=== PATIENT | male | born 1980 | race Caucasian/White ===

== ENCOUNTER 2022-04-08 09:58 | Day surgery (SDC) | payer BC ==
--- OUTSIDE RECORDS SUMMARY | 2022-04-08 10:01 | XMS REPORT | Continuity of Care Document ---
:1980 Author Organization [facility] t Address [address] [place] [address] Dr. García. [address] [place] [address] Care Team Providers Name Role Phone Pcp, Patient Does Not Have A Primary Care Physician [phone] LLakeisha Attending Clinician Unavailable CHRISTA CORREA Attending Clinician Unavailable Christa Foy Attending Clinician Unknown, Attending Attending Clinician Unavailable Darling Morton Attending Clinician [phone] STEVE_Tristian Attending Clinician Unavailable Dorita Harrell Attending Clinician [phone] Tristian_Praveen Admitting Clinician Unavailable STEVE_Tristian Admitting Clinician Unavailable Payers Payer Name Policy Type Policy Number Effective Date Expiration Date S [id number] 2017 00:[place]:00 [place] [id number] 2017 00:00:00 OUT OF STATE Problems Condition Condition Condition Status Onset Resolution Last Treating Co mments Source Name Details Category Date Date Treatment Clinician Date Streptococ Streptococ Problem Active S [facility] catie sore catie Sore 01-03 Commun i throat Throat 00:00: ty 00 [facility] Acute Acute Problem Active [place] sinusitis Sinusitis 01-03 Comm uni 00:00: ty 00 [facility] Clin[facility] Pain in Pain in Problem Active [place] throat Throat 01-03 Communi 00:00: ty 00 [facility] Clinics Fatigue Fatigue Problem Active [place] 9-16 Communi 00:00: ty 00 [facility]ita [facility] Clinics Cough Cough Problem Active [place] 9-16 Communi 00:00: ty 00 Hospita Clinics Anxiety Anxiety Problem Active 2020-04 [place] disorder Disorder 2-07 Commun i 00:00: ty 00 Hospita l Clinics Depressive Depressive Problem Active 2020-04 S ween[facility] disorder Disorder 2-07 [facility] upper [facility]-23 Formattin ity of respirator respirator 00:00: g of this y y 00 note Medical infection infection might be Br anch different from the original. ICD10 Diagnosis Term Visual Specialist Utility Dyspnea Dyspnea Disease Active 2005-04 Overview: Univ ers and and 05-16 Formattin ity of respirator respirator 00:00: g of this y y note Medical abnormalit abnormalit might be Branch y y different from the original. ICD10 Diagnosis Term Visual Specialist Utility Allergies, Adverse Reactions, Alerts Allergy Allergy Status Severity Reaction(s) Onset Inactive Treating Comm ents Source Name Type Date Date Clinician NO KNOWN Drug Active [facility] ALLERGIE Class ity of S [facility] Social History Social Habit Start Date Stop Date Quantity Comments Source History of Smokes tobacco University of tobacco use daily [facility] Exposure to 2022-03-26 2022-04-05 Not sure University of SARS-CoV-2 00:00:00 10:28:00 [facility] (event) [employer] Alcohol intake 2007-06-24 2007-06-24 Current drinker Unive rsity of 00:00:00 00:00:00 of alcohol [facility] (finding) [employer] Tobacco Comment 2007-06-24 2007-06-24 occas Universit y of 00:00:00 00:00:00 [facility] Alcohol Comment 2007-06-24 2007-06-24 8 beers/week Univers ity of 00:00:00 00:00:00 [facility] Sex Ass[birth year] At [birth year] Universit y of 00:00:00 00:00:00 [facility] Smoking Status Start Date Stop Date Source Smokes tobacco daily 2007-06-24 00:00:00 Univers ity of [facility] Medications Ordered Filled Start Stop Current Ordering Indication Dosage Frequency Signature Comments Components Source Medication Medication Date Date Medication? Clinician (SIG) Name Name ketorolac 2021-04- No [id number] 30mg Univers (TORADOL) 06-06 ity of injection 18:00: 17:09 [place] 30 mg 00 :00 [facility] ketorolac 2021-04- No [id number] 30mg 30 mg, Univers (TORADOL) 06-06 Intramuscu it y of injection 18:00: 17:09 [place], ONCE, [place] 30 mg 00 :00 1 dose, On [facility] 04/05/22 at 1200, Routine Kenalog 40 Kenalog 40 No Kenalog 40 [place] mg/mL mg/mL 9-16 mg/mL Communi suspension suspension 11:45: suspension ty for for 00 for Hospita injectionTa injectionTa injectionT l ke 60 mg by ke 60 mg by lawson 60 mg Clinics injection injection by route as route as injection directed directed route as for 1 day. for 1 day. directed for 1 day. ZITHROMAX 2007-04 Yes [id number] as [facility] Real Time Content-TARI 250 2-10 directed ity of MG ORAL TAB 00:00: [place] 00 [facility] ZITHROMAX 2007-04 Yes [id number] as [facility] OpenSynergy-TARI 250 2-10 directed ity of MG ORAL TAB 00:00: [place] [address] [facility] acetaminoph acetaminoph No 1 Q7H acetaminop [place] en 300 en 300 hen 300 Communi mg-codeine mg-codeine mg-codeine ty 30 mg 30 mg 30 mg Hospita tablet Take tablet Take tablet l 1 tablet 1 tablet Take 1 Clini cs every 6-8 every 6-8 tablet hours by hours by every 6-8 oral route. oral route. hours by oral route. acetylcyste acetylcyste No 2capsul BID acetylcyst [place] ine 600 mg ine 600 mg e(s) eine 600 Communi capsule capsule mg capsule ty Take 2 Take 2 Take 2 Hospita capsules capsules capsules l twice a day twice a day twice a Clinics by oral by oral day by route. route. oral route. albuterol albuterol No 2puff(s Q5H albuterol [place] sulfate HFA sulfate HFA ) sulfate Communi 90 90 HFA 90 ty mcg/actuati mcg/actuati mcg/actuat Hospita on aerosol on aerosol ion l inhaler inhaler aerosol Clinic s Inhale 2 Inhale 2 inhaler puffs every puffs every Inhale 2 4-6 hours 4-6 hours puffs by by every 4-6 inhalation inhalation hours by route. route. inhalation route. alprazolam alprazolam No alprazolam [place] 0.5 mg 0.5 mg 0.5 mg Communi tablet prn tablet prn tablet prn ty Hospita l Clinics azithromyci azithromyci No 1 Q1D azithromyc [place] n 500 mg n 500 mg in 500 mg Co mmuni tablet Take tablet Take tablet ty 1 tablet 1 tablet Take 1 Hospi ta every day every day tablet l by oral by oral every day Clin ics route for 5 route for 5 by oral days. days. route for 5 days. fluoxetine fluoxetine No fluoxetine [place] 40 mg 40 mg 40 mg Communi capsule capsule capsule ty Hospita l Clinics ivermectin ivermectin No 2 BID ivermectin [place] 3 mg tablet 3 mg tablet 3 mg C ommuni Take 2 Take 2 tablet ty tablets tablets Take 2 Hospita twice a day twice a day tablets l by oral by oral twice a Clinic s route. route. day by oral route. omeprazole omeprazole No omeprazole [place] 40 mg 40 mg 40 mg Communi capsule,del capsule,del capsule,de ty ayed ayed layed Hospita release release release l Clinics ziprasidone ziprasidone No ziprasidon [place] 20 mg 20 mg e 20 mg Communi capsule capsule capsule ty Hospita l Clinics amoxicillin amoxicillin No 1 Q12H amoxicilli [place] [phone] n 875 Communi mg-potassiu mg-potassiu mg-potassi ty m m Hospita clavulanate clavulanate clavulanat l 125 mg 125 mg e 125 mg Clinics tablet Take tablet Take tablet 1 tablet 1 tablet Take 1 every 12 every 12 tablet hours by hours by every 12 oral route oral route hours by for 7 days. for 7 days. oral route for 7 days. benazepril benazepril No benazepril [place] 20 mg 20 mg 20 mg Communi tablet TAKE tablet TAKE tablet ty 1 TABLET BY 1 TABLET BY TAKE 1 Hospita MOUTH EVERY MOUTH EVERY TABLET BY l DAY DAY MOUTH Clinics EVERY DAY benzonatate benzonatate No 1capsul TID benzonatat [place] 200 mg 200 mg e(s) e 200 mg Communi capsule capsule capsule ty Take 1 Take 1 Take 1 Hospita capsule 3 capsule 3 capsule 3 l times a day times a day times a Clinics by oral by oral day by route as route as oral route needed for needed for as needed 5 days. 5 days. for 5 days. bupropion bupropion No bupropion [place] HCl XL 150 HCl XL 150 HCl XL 150 Communi mg 24 hr mg 24 hr mg 24 hr ty tablet, tablet, tablet, Hospit a extended extended extended l release release release Clinic s TAKE 1 TAKE 1 TAKE 1 TABLET BY TABLET BY TABLET BY MOUTH EVERY MOUTH EVERY MOUTH DAY IN THE DAY IN THE EVERY DAY MORNING MORNING IN THE MORNING bupropion bupropion No bupropion [place] HCl XL 300 HCl XL 300 HCl XL 300 Communi mg 24 hr mg 24 hr mg 24 hr ty tablet, tablet, tablet, Hospit a extended extended extended l release release release Clinic s TAKE 1 TAKE 1 TAKE 1 TABLET BY TABLET BY TABLET BY MOUTH EVERY MOUTH EVERY MOUTH DAY DAY EVERY DAY Kenalog 40 Kenalog 40 No 60mg Kenalog 40 [place] mg/mL mg/mL mg/mL Communi suspension suspension suspension ty for for for Hospita injection injection injection l Take 60 mg Take 60 mg Take 60 mg Clinics by by by injection injection injection route as route as route as directed directed directed for 1 day. for 1 day. for 1 day. omeprazole omeprazole No omeprazole [place] 40 mg 40 mg 40 mg Communi capsule,del capsule,del capsule,de ty ayed ayed layed Hospita release release release l TAKE 1 TAKE 1 TAKE 1 Clinics CAPSULE BY CAPSULE BY CAPSULE BY MOUTH EVERY MOUTH EVERY MOUTH DAY DAY EVERY DAY promethazin promethazin No 5mL Q4H promethazi [place] e-DM 6.25 e-DM 6.25 ne-DM 6.25 Communi mg-15 mg/5 mg-15 mg/5 mg-15 mg/5 ty mL oral mL oral mL oral Hospit a syrup Take syrup Take syrup Take l 5 mL every 5 mL every 5 mL every Clinics 4 hours by 4 hours by 4 hours by oral route oral route oral route as needed. as needed. as needed. Immunizations Ordered Immunization Filled Immunization Date Status Commen ts Source Name Name COVID-19 COVID-19 2020-11-30 [facility] (SARS-COV-2) 00:00:00 Hospital C linics vaccine, unspecified vaccine, unspecified COVID-19 COVID-19 2020-11-30 Completed [facility] ty (SARS-COV-2) (SARS-COV-2) 00:00:00 [facility], unspecified vaccine, unspecified Vital Signs Vital Name Observation Time Observation Value Comments Source Systolic blood 2022-04-05 16:30:00 143 mm[Hg] Univer sity [facility] Diastolic blood 2022-04-05 16:30:00 82 mm[Hg] Unive rsity of [facility] Heart rate 2022-04-05 16:29:00 98 /min [facility] Body temperature 2022-04-05 16:29:00 36.67 [facility] Respiratory rate 2022-04-05 16:29:00 17 /min [facility] Body height 2022-04-05 16:29:00 175.3 cm [facility] Body weight 2022-04-05 16:29:00 113.082 kg [facility] BMI 2022-04-05 16:29:00 36.82 kg/m2 [facility] Oxygen saturation in 2022-04-05 16:29:00 96 /min [facility] Arterial blood by [facility] Pulse oximetry Branch BP Diastolic 2022-01-03 00:00:00 82 mm[Hg] [facility] s Height 2022-01-03 00:00:00 69 [in_i] [facility] s BMI (Body Mass 2022-01-03 00:00:00 35.8 kg/m2 [facility]) [facility] Clinic s BP Systolic 2022-01-03 00:00:00 118 mm[Hg] [facility] s Body Weight 2022-01-03 00:00:00 3875.2 [oz_av] [facility] s Body Weight 2021-03-26 00:00:00 3724.8 [oz_av] [facility] s BP Diastolic 2021-03-26 00:00:00 73 mm[Hg] [facility] s Height 2021-03-26 00:00:00 69 [in_i] [facility] s BMI (Body Mass 2021-03-26 00:00:00 34.4 kg/m2 [facility] s BP Systolic 2021-03-26 00:00:00 141 mm[Hg] [facility] s Procedures Procedure Date / Time Performed Performing Clinician Sour e XR HAND 3+ VW LEFT 2022-04-05 16:47:00 Christa Correa [facility] Inguinal Region Repair [facility] Esophageal [facility] Hernia Repair [facility] Plan of Care Planned Activity Planned Date Details Comments Source Diagnostic Test 2022-01-03 rapid SARS CoV 2 Ag, [facility] Pending 00:00:00 QL [place], respiratory Hospital Clinics specimen [code = rapid SARS CoV 2 Ag, QL [place], respiratory specimen] Diagnostic Test 2022-01-03 rapid flu (A+B) [facility] Pending 00:00:00 [code = rapid flu [facility] linics (A+B)] Diagnostic Test 2022-01-03 rapid strep group A, [facility] Pending 00:00:00 throat [code = rapid [facility] strep group A, throat] Instructions [facility] s Encounters Start End Encounter Admission Attending Care Care Encounter Source Date/Time Date/Time Type Type Clinicians Facility Department ID 2022-04-08 2022-04-08 Outpatient L_Pena [facility] [id number] [place] 00:00:00 00:00:00 1220 Commun i ty Hospita l Clinics 2022-04-07 2022-04-07 Outpatient L_Pena [facility] [id number] [place] 00:00:00 00:00:00 1219 Commun i ty Hospita l Clinics 2022-04-05 2022-04-05 Outpatient TOMASA CHU [facility] [id number] Univers 10:40:56 23:59:00 RANSUDHIR ity [facility] 2022-04-05 2022-04-05 Hospital Inga [facility] [id number] Univers 10:40:56 23:59:00 Encounter Christa [facility] [id number] ity [facility] [id number] Armaan as THELMA?BLEA [id number] [facility] [address] [employer] MEDICAL OFFICE BUILDING 2022-04-05 2022-04-05 Urgent Christa Correa [facility] [id number] Univers 10:20:00 10:40:00 Care Unknown, [facility] HEALTH [id number] ity of [place] [id number] Araman as THELMA?BLEA [id number] [facility] [address] [employer] MEDICAL OFFICE [facility] 2022-01-03 2022-01-03 Outpatient L_Praveen [facility] [id number] [place] 00:00:00 00:00:00 0916 Commun i ty [facility]osp[facility] 2022-01-03 2022-01-[address] [facility] [id number] 00:00:00 00:00:00 [id number] 2022-01-03 2022-01-03 Darling [facility] [place] - [place] [id number] [place] 00:00:00 00:00:00 Kandice Morton APRN, MSN, Hospital - ty [facility]: [address], CLINIC [address], [place] [address] , Ph. 2021-06-22 2021-06-22 Outpatient [facility] 114 [place] 02:27:00 02:27:00 _L 0305 Commun i ty Hospita l [facility] 2021-05-18 2021-05-18 Outpatient [facility] 114 [place] 04:47:00 04:47:00 _L 0129 Commun i ty Hospita l [facility] 2021-04-13 2021-04-13 Outpatient [facility] 114 [place] 03:02:00 03:02:00 _L 1225 Commun i ty Hospita l Clinics 2021-03-26 2021-03-26 Outpatient [facility] 114 [place] 05:48:00 05:48:00 _L 1207 Commun i ty Hospita l [facility] 2021-03-26 2021-03-26 Dorita 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 2021-03-26 2021-03-26 Outpatient [facility] [id number] 00:00:00 00:00:00 Dorita [id number] 2021-03-05 2021-03-05 Outpatient [facility] 114 [place] 05:14:00 05:14:00 _L 1116 Commun i ty Hospita l [facility] 2021-03-05 2021-03-05 Jennifer Hatch [facility] [place] - [place] [id number] [place] 00:00:00 00:00:00 [facility] CARROLL RodriguezP-C: Hospital - ty [address] [place], [place] [address], [place] [address] , Ph. Results This patient has no known results.
[2022-04-08 10:42] LABS: Absolute Lymphocytes (CBC) 1.1 K/uL (0.7-4.9); Hematocrit 49.7 % (39.6-49.0); MCV 92.4 fL (80-100); MPV 8.3 fL (7.6-11.3); RBC Red Blood Cell Count 5.38 M/uL (4.33-5.43)
[2022-04-08] MEDS ORDERED: NA CHLORIDE 0.9% 250 ML ONE (10:47)
[2022-04-08] MEDS ORDERED: CEFAZOLIN SODIUM 1 GM/VIAL ONE (10:47)
[2022-04-08 10:54] LABS: Potassium 4.5 mmol/L (3.5-5.1)
--- NOTE | 2022-04-08 11:35 | RAD REPORT ---
EXAM DESCRIPTION: RAD -Hand Left 3 View - 04/08/2022 11:29 am CLINICAL HISTORY: Left hand swelling FINDINGS: No fracture or dislocation is seen. Hypoplastic fifth metacarpal No bony destructive lesions seen
[2022-04-08 11:44] LABS: SARS-CoV-2 Antigen Rapid Res Negative (Negative)
--- NOTE | 2022-04-08 12:32 | ER ---
Nurse's Notes [facility] Name: Lorne Cornejo Age: 42 yrs Sex: Male : 1980 Arrival Date: 04/08/2022 Time: 10:02 Bed 4 Private MD: Benedicto Gibbons Diagnosis: Local infection of the skin and subcutaneous tissue, unspecified;Left Thumb Crush Injury Presentation: 04/08 10:14 Chief complaint: Patient states: smashed his left thumb with hammer a couple months iw ago, was seen at [facility] urgent care and put on abx yesterday , followed up today and was told to come to ER and have Dr. Duran evaluate it. Coronavirus screen: At this time, the client does not indicate any symptoms associated with coronavirus-19. Ebola Screen: Patient negative for fever greater than or equal to 101.5 degrees Fahrenheit, and additional compatible Ebola Virus Disease symptoms Patient denies exposure to infectious person. Patient denies travel to an Ebola-affected area in the 21 days before illness onset. No symptoms or risks identified at this time. Initial Sepsis Screen: Does the patient meet any 2 criteria? No. Patient's initial sepsis screen is negative. Does the patient have a suspected source of infection? No. Patient's initial sepsis screen is negative. Risk Assessment: Do you want to hurt yourself or someone else? Patient reports no desire to harm self or others. Onset of symptoms was February 06, 2022. 10:14 Method Of Arrival: Ambulatory iw 10:14 Acuity: KATHIA 3 iw Historical: - Allergies: 10:16 No Known Allergies; iw - Home Meds: 10:16 Omeprazole Oral [Active]; venlafaxine oral [Active]; Wellbutrin Oral [Active]; iw - PMHx: 10:16 Depressive disorder; Anxiety; iw - PSHx: 10:16 hernia; iw - Immunization history:: Client reports receiving the 2nd dose of the Covid vaccine. - Social history:: Smoking status: Patient denies any tobacco usage or history of. Patient uses alcohol, weekly. Screenin:17 [facility] ED Fall Risk Assessment (Adult) History of falling in the last 3 months, kc6 including since admission No falls in past 3 months (0 pts) Confusion or Disorientation No (0 pts) Intoxicated or Sedated No (0 pts) Impaired Gait No (0 pts) Mobility Assist Device Used No (0 pt) Altered Elimination No (0 pt) Score/Fall Risk Level 0 - 2 = Low Risk. Abuse screen: Denies threats or abuse. Denies injuries from another. Nutritional screening: No deficits noted. Tuberculosis screening: No symptoms or risk factors identified. Assessment: 10:18 General: Appears in no apparent distress. comfortable, Behavior is calm, cooperative, kc6 appropriate for age. Pain: Denies pain. Neuro: [place] Agitation-Sedation Scale (RASS): 0 - Alert and Calm Level of Consciousness is awake, alert, Oriented to person, place, time, situation, Appropriate for age. Cardiovascular: Heart tones S1 S2 present Capillary refill < 3 seconds. Respiratory: Airway is patent Trachea midline Respiratory effort is even, unlabored, Respiratory pattern is regular, symmetrical, Breath sounds are clear bilaterally. GI: No signs and/or symptoms were reported involving the gastrointestinal system. : EENT: No signs and/or symptoms were reported regarding the EENT system. Derm: No signs and/or symptoms reported regarding the dermatologic system. Skin is intact, Skin is pink, warm \T\ dry. Musculoskeletal: Circulation, motion, and sensation intact. Capillary refill < 3 seconds, Range of motion: intact in all extremities, Swelling present in left thumb Reports numbness in left thumb. 11:02 Reassessment: Patient appears in no apparent distress at this time. No changes from kc6 previously documented assessment. Patient and/or family updated on plan of care and expected duration. Pain level reassessed. Patient is alert, oriented x 3, equal unlabored respirations, skin warm/dry/pink. Patient denies pain at this time. 11:57 Reassessment: Patient appears in no apparent distress at this time. No changes from kc6 previously documented assessment. Patient and/or family updated on plan of care and expected duration. Pain level reassessed. Patient is alert, oriented x 3, equal unlabored respirations, skin warm/dry/pink. Patient denies pain at this time. 13:45 Reassessment: Dr. Gibbons at bedside speaking with the patient. kc6 Vital Signs: 10:14 BP 147 / 99; Pulse 86; Resp 16; Temp 98.0; Pulse Ox 99% on R/A; Weight 108.86 kg; iw Height 5 ft. 9 in. (175.26 cm); Pain 0/10; 11:02 BP 146 / 85; Pulse 74; Resp 18 S; Pulse Ox 98% on R/A; Pain 0/10; kc6 11:57 BP 146 / 87; Pulse 81; Resp 18 S; Pulse Ox 99% on R/A; Pain 0/10; kc6 13:46 BP 140 / 88; Pulse 71; Resp 18 S; Pulse Ox 99% on R/A; Pain 0/10; kc6 10:14 Body Mass Index 35.44 (108.86 kg, 175.26 cm) ED Course: 10:02 Patient arrived in ED. as 10:03 Benedicto Gibbons MD is Private Physician. as 10:03 Glenna Kline FNP is [facility] jh7 10:03 Garland Littlejohn DO is Attending Physician. 7 10:11 Lizette Mayers, LAILA is Primary Nurse. kc6 10:16 Triage completed. iw 10:18 Arm band placed on. iw 10:19 Patient has correct armband on for positive identification. Bed in low position. Call kc6 light in reach. Side rails up X 1. 10:31 BMP Sent. kc6 10:31 CBC with Diff Sent. kc6 10:31 Inserted saline lock: 20 gauge in right antecubital area, using aseptic technique. kc6 Blood collected. 11:30 XRAY Hand LEFT 3 View In Process Unspecified. EDMS 12:30 Benedicto Gibbons MD is Hospitalizing Provider. [facility] 13:55 No provider procedures requiring assistance completed. Patient admitted, IV remains in kc6 place. Administered Medications: 11:02 Drug: Ancef (cefazolin) 1 grams Route: IVPB; Site: right antecubital; kc6 12:02 Follow up: Response: No adverse reaction; IV Status: Completed infusion; IV Intake: kc6 250ml Medication: 13:55 VIS not applicable for this client. kc6 Intake: 12:02 IV: 250ml; Total: 250ml. 6 Outcome: 12:31 Decision to Hospitalize by Provider. [facility] 13:55 Admitted to OR accompanied by tech, via wheelchair, with chart, Report called to [place] [id number] 13:55 Condition: stable 13:55 Instructed on the need for transfer. 13:57 Patient left the ED. kc6 Signatures: Dispatcher [employer] Lis Simpson Irene, RN RN iw Glenna Kline, PENCILS WASHER PENCILS WASHER jh7 Lizette Mayers RN RN kc6
--- NOTE | 2022-04-08 12:32 | EDPHYS ---
Physician Documentation [facility] Name: Lorne Cornejo Age: 42 yrs Sex: Male : 1980 Arrival Date: 04/08/2022 Time: 10:02 Bed 4 Private MD: Benedicto Gibbons ED Physician Garland Littlejohn HPI: 04/08 10:20 This 42 yrs old Male presents to ER via Ambulatory with complaints of Thumb Injury. jh7 10:20 Onset: The symptoms/episode began/occurred 2 month(s) ago, and became worse. Patient jh7 sent from Dr. Gibbons's office for a left thumb injury. He reports that he smashed his thumb in a door 2 months ago but that he noticed that his nail had turned black as well as the surrounding skin. Reports that he was started on oral antibiotics yesterday at an urgent care. Denies fever or decrease in ROM.. Historical: - Allergies: 10:16 No Known Allergies; iw - Home Meds: 10:16 Omeprazole Oral [Active]; venlafaxine oral [Active]; Wellbutrin Oral [Active]; iw - PMHx: 10:16 Depressive disorder; Anxiety; iw - PSHx: 10:16 hernia; iw - Immunization history:: Client reports receiving the 2nd dose of the Covid vaccine. - Social history:: Smoking status: Patient denies any tobacco usage or history of. Patient uses alcohol, weekly. ROS: 10:20 Constitutional: Negative for fever, chills, and weight loss, Eyes: Negative for injury, jh7 pain, redness, and discharge, ENT: Negative for injury, pain, and discharge, Cardiovascular: Negative for chest pain, palpitations, and edema, Respiratory: Negative for shortness of breath, cough, wheezing, and pleuritic chest pain, Abdomen/GI: Negative for abdominal pain, nausea, vomiting, diarrhea, and constipation, Back: Negative for injury and pain, Neuro: Negative for headache, weakness, numbness, tingling, and seizure. 10:20 MS/extremity: Positive for injury or acute deformity, erythema, swelling, Negative for decreased range of motion. 10:20 Skin: Positive for erythema. 10:20 All other systems are negative. Exam: 10:20 Constitutional: This is a well developed, well nourished patient who is awake, alert, jh7 and in no acute distress. Head/Face: Normocephalic, atraumatic. Neck: Trachea midline, no thyromegaly or masses palpated, and no cervical lymphadenopathy. Supple, full range of motion without nuchal rigidity, or vertebral point tenderness. No Meningismus. Cardiovascular: Regular rate and rhythm with a normal S1 and S2. No gallops, murmurs, or rubs. Normal PMI, no JVD. No pulse deficits. Respiratory: Lungs have equal breath sounds bilaterally, clear to auscultation and percussion. No rales, rhonchi or wheezes noted. No increased work of breathing, no retractions or nasal flaring. Back: No spinal tenderness. No costovertebral tenderness. Full range of motion. Neuro: Awake and alert, GCS 15, oriented to person, place, time, and situation. Motor strength 5/5 in all extremities. Sensory grossly intact. Normal gait. 10:20 Musculoskeletal/extremity: ROM: intact in all extremities, Circulation is intact in all extremities. the L thumb numbness. 10:20 Skin: Appearance: Left thumbnail is black and nearly detached. There is mild erythema and tenderness slightly proximal to the nail with scant purulent drainage present.. Vital Signs: 10:14 BP 147 / 99; Pulse 86; Resp 16; Temp 98.0; Pulse Ox 99% on R/A; Weight 108.86 kg; iw Height 5 ft. 9 in. (175.26 cm); Pain 0/10; 11:02 BP 146 / 85; Pulse 74; Resp 18 S; Pulse Ox 98% on R/A; Pain 0/10; kc6 11:57 BP 146 / 87; Pulse 81; Resp 18 S; Pulse Ox 99% on R/A; Pain 0/10; kc6 13:46 BP 140 / 88; Pulse 71; Resp 18 S; Pulse Ox 99% on R/A; Pain 0/10; kc6 10:14 Body Mass Index 35.44 (108.86 kg, 175.26 cm) iw MDM: 10:03 Patient medically screened. 7 10:37 ED course: Spoke to Dr. Gibbons who advised basic labs and x-rays of the left hand. 7 He stated that he was on his way to the ER and to prep the patient for surgery.. 12:35 Differential diagnosis: Osteomyelitis, paronychia, nail injury, cellulitis of the left [facility] thumb. Data reviewed: vital signs, nurses notes, lab test result(s), radiologic studies, plain films. Data interpreted: Pulse oximetry: is 99 %. Interpretation: normal. Counseling: I had a detailed discussion with the patient and/or guardian regarding: the historical points, exam findings, and any diagnostic results supporting the discharge/admit diagnosis, the need for further work-up and treatment in the hospital. 04/08 10:14 Order name: CBC with Diff; Complete Time: 11:28 [facility] 04/08 10:14 Order name: BMP; Complete Time: 11:28 [facility] 04/08 10:31 Order name: IV Start; Complete Time: 10:31 kc6 04/08 10:36 Order name: SARS-COV-2 Antigen Rapid; Complete Time: 11:47 bd 04/08 10:37 Order name: XRAY Hand LEFT 3 View; Complete Time: 11:42 [facility] Administered Medications: 11:02 Drug: Ancef (cefazolin) 1 grams Route: IVPB; Site: right antecubital; kc6 12:02 Follow up: Response: No adverse reaction; IV Status: Completed infusion; IV Intake: kc6 250ml Disposition: 11:26 Co-signature as Attending Physician, Garland Littlejohn DO I was immediately available onsite ms3 in the emergency department for consultation in the care of the patient. Disposition Summary: 04/08/22 12:31 Hospitalization Ordered Hospitalization Status: Observation [facility] Provider: Benedicto Gibbons [facility] Location: Operating Room [facility] Condition: Stable [facility] Problem: new [facility] Symptoms: are unchanged [facility] Bed/Room Type: Standard [facility] Room Assignment: [facility] Diagnosis - Local infection of the skin and subcutaneous tissue, unspecified [facility] - Left Thumb Crush Injury [facility] Forms: - Medication Reconciliation Form [facility] - SBAR form [facility] Signatures: Dispatcher [employer] Bharati Bravo RN RN iw Sims, Marcus, DO DO ms3 Glenna Kline FNP [employer] [facility] Lizette Mayers RN RN kc6 Corrections: (The following items were deleted from the chart) 12:37 10:37 ED course: Spoke to Dr. Gibbons who advised basic labs and x-rays of the left jh7 hand. He stated that he was on his way to the ER.. 7
[2022-04-08] MEDS ORDERED: FENTANYL CITR 100 MCG/2 ML ONE (13:48)
[2022-04-08] MEDS ORDERED: propofoL 200 MG/20 ML VIAL IV ONE (13:48)
[2022-04-08] MEDS ORDERED: LIDOCAINE 2% MPF 5 ML VIAL ONE (13:49)
[2022-04-08] MEDS ORDERED: dexAMETHasone 10 MG/ML VIAL ONE ×2 (13:49→14:17)
[2022-04-08] MEDS ORDERED: ONDANSETRON 4 MG/2 ML VIAL ONE (13:49)
[2022-04-08] MEDS ORDERED: KETOROLAC 30 MG/ML INJ ONE (13:49)
[2022-04-08] MEDS ORDERED: MIDAZOLAM HCL 2 MG/2 ML INJ ONE (13:49)
[2022-04-08] MEDS ORDERED: NA CHLORIDE 0.9% 1,000 ML IV SCH (14:06)
[2022-04-08] MEDS ORDERED: Ringers Lactate 1,000 ML IV ONE (14:08)
[2022-04-08] MEDS ORDERED: BUPIVACAINE 0.5% PF 10 ML VIAL ONE (14:17)
[2022-04-08] MEDS: HYDROMORPHONE HCL 1 MG/ML INJ ONE ×4 (15:16→15:32)
--- NOTE | 2022-04-08 15:19 | HP ---
Date of Admission: 04/08/2022 History Of Present Illness: A 42-year-old white male about 2 months ago, then fell this w eekend, injured the thumb, began hurting more and more. He presented to the emergency room with evaluation. He does . Past Medical History: No medical problems. Past Surgical History: Previous surgery of hernia. Social History: He does not smoke. Drinks on occasion. Allergies: NO ALLERGIES. Medications: He is on Wellbutrin . Physical Examination: He has a swollen left thumb. The nail plate is floating off. He has dry gangrene around it. It is swollen and tender. Laboratory Data: X-ray shows no fractures. Assessment: Crush injury of the left thumb. Plan: Debridement. HONORIO/JUSTIN Voice ID: [id number]
[2022-04-08 15:31] VITALS: O2SAT 96
--- NOTE | 2022-04-08 15:31 | OP ---
Surgeon: Benedicto Gibbons MD Preoperative Diagnosis: Subungual hematoma of the left thumb. Postoperative Diagnosis: Subungual hematoma of the left thumb. Procedure Performed: Evacuation of hematoma, debridement of skin, nail bed repair. Anesthesia: General. Description Of Procedure: After satisfactory induction of general anesthesia, the left hand was prep ped with Betadine scrub and Betadine paint. Dry sterile drapes were applied in usual manner. A corey osteal elevator was used to remove the thumb nail plate. The eponychium was debrided with tenotomy s cissors. The wound jet lavaged, irrigated with 3 L of dilute Betadine solution. The laceration of n ail bed was repaired with interrupted 4-0 PDS sutures. A nail plate. Xeroform and 2 inch Candis were applied for dressing. The patient tolerated procedure well and returned to Recovery. HONORIO/JUSTIN Voice ID: [id number] Report ID: [id number]
[2022-04-08] MEDS ORDERED: HYDROCODONE/APAP 10/325 TAB PO ONE (15:50)
[2022-04-08 16:02] VITALS: BP 135/77; TEMP 98.4
[2022-04-08] MEDS ORDERED: HYDROCODONE/APAP 10/325 TAB ONE (16:04)
== END 2022-04-08 16:30 | disposition home or self-care (01) ==
LOC: ER 09:58 → ERHOLD 13:02 → UNDOADMOB 13:02 → OR 14:28
PROVIDERS: ATTEND Specialist
PROC: 0HQQXZZ Repair Finger Nail, External Approach (ICD-10-PCS; 2022-04-08)
PROC: 0X9K0ZZ Drainage of Left Hand, Open Approach (ICD-10-PCS; principal; 2022-04-08 12:30)
DX: S60.112A Contusion of left thumb with damage to nail, initial encounter (principal); X58.XXXA Exposure to other specified factors, initial encounter
CPT/HCPCS: 85025; 80048; 36415; 73130; 87811; 10140; 11760; J2704; J2001; J2250; J3010; J1100 ×2; J1170 ×2; J7120; J7050; J2405; J0690; 96365; 99285

== ENCOUNTER 2025-01-27 11:43 | Emergency (ER) | payer BC ==
--- OUTSIDE RECORDS SUMMARY | 2025-01-27 11:46 | XMS REPORT | Continuity of Care Document ---
Author Name Unknown Address [address] [facility] [address] [facility] [address] [place] [address] [facility] Address [address] [place] [address] Care Team Providers Care Legal Adviser Name Role Phone Pcp, Patient Does Not Have A Primary Care Physic natividad Dandre Esparza Attending Clinician + [phone] Unknown, Attending Attending Clinician Unavailab Alda Garcia Provider Attending Clinician Unavailable DANDRE LA Attending Clinician Unavailab simon Chappell Attending Clinician Unavailable TYSHAWN BERRIOS Attending Clinician CANDY Lowery Attending Clinician UnavailSHASAH Dukes Attending Clinician Unavailable Kamila Case PA-C Attending Clinician [phone] KAMILA CASE Attending Clinician Unavailable Doctor Unassigned, [place] Attending Clinician U CHRISTA Foley Attending Clinician Unavailable Christa Foy Attending Clinician [phone] Unknown, Attending Attending Clinician UnavailDarling Bustamante Attending Clinician [phone] STEVE_Tristian Attending Clinician Unavailable Dorita Harrell Attending Clinician [phone] L_Praveen Admitting Clinician Unavailable TYSHAWN BERRIOS Admitting Clinician CANDY Lowery Admitting Clinician Cecil WILSON_Tristian Admitting Clinician Unavailable Payers Payer Name Policy Type Policy Number Effective Date Expirati on Date Source [place] [id number] 2017 00:00:00 Problems Condition Name Condition Details Condition Category Status Onset Date Resolution Date Last Treatment Date Treating Clinician Comments Source Abnormal renal function Abnormal Renal Function Problem Active 07-18 00:00: 00 [facility] Type 2 diabetes mellitus Type 2 Diabetes Mellitus Problem Active 05-02 00:00: 00 [facility] Mixed hyperlipid emia Mixed Hyperlipid emia Problem Active 05-02 00:00: 00 [facility] Obstructiv e sleep apnea syndrome Obstructiv e Sleep Apnea Syndrome Problem Active 10-17 00:00: 00 [facility] Hyperlipid emia Hyperlipid emia Problem Active 09-23 00:00: 00 [facility] Acute pharyngiti s Acute Pharyngiti s Problem Active 08-08 00:00: 00 [facility] Allergic rhinitis Allergic Rhinitis Problem Active 08-08 00:00: 00 [facility] Acute upper respirator y infection Acute Upper Respirator y Infection Problem Active 05-13 00:00: 00 [facility] Nasal congestion Nasal Congestion Problem Active 05-13 00:00: 00 [facility] Thumb injury Thumb Injury Problem Active 2021-04 00:00: 00 [facility] Streptococ catie sore throat Streptococ catie Sore Throat Problem Active 01-03 00:00: 00 [facility] Acute sinusitis Acute Sinusitis Problem Active 01-03 00:00: 00 [facility] Pain in throat Pain in Throat Problem Active 01-03 00:00: 00 [facility] Fatigue Fatigue Problem Active 01-03 00:00: 00 [facility] Cough Cough Problem Active 01-03 00:00: 00 [facility] Anxiety disorder Anxiety Disorder Problem Active 2020-04 00:00: 00 [facility] Depressive disorder Depressive Disorder Problem Active 2020-04 00:00: 00 [facility] Acute upper respirator y infection Acute upper respirator y infection Disease Active 06-23 00:00: 00 Overview: Formattin g of this note might be different from the original. 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 Dyspnea and respirator y abnormalit y Dyspnea and respirator y abnormalit y Disease Active 2005-04 00:00: 00 Overview: Formattin g of this note might be different from the original. 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 Allergies, Adverse Reactions, Alerts Allergy Name Allergy Type Status Severity Reaction(s) Onset Date Inactive Date Treating Clinician Comments Source NO KNOWN ALLERGIE S Drug Class Active [facility] Social History Social Habit Start Date Stop Date Quantity Comments Source Sexual orientation U [facility] History of tobacco use Smokes tobacco daily [facility] Exposure to SARS-CoV-2 (event) 2022-07-16 00:00:00 2022-07-26 20:07:00 Not sure [facility] History of Social function 2022-04-05 00:00:00 2022-04-05 00:00:00 [facility] Alcohol intake 2007-06-24 00:00:00 2007-06-24 00:00:00 Current drinker of alcohol (finding) [facility] Tobacco Comment 2007-06-24 00:00:00 2007-06-24 00:00:00 occas [facility] Alcohol Comment 2007-06-24 00:00:00 2007-06-24 00:00:00 8 beers/week [facility] Alcoholic beverage intake 2007-06-24 00:00:00 2007-06-24 00:00:00 Current drinker of alcohol (finding) [facility] Sex assigned at 1980 00:00:00 1980 00:00:00 [facility] Smoking Status Start Date Stop Date Source Never Smoker [facility] Smokes tobacco daily 2007-06-24 00:00:00 [facility] Medications Ordered Medication Name Filled Medication Name Start Date Stop Date Current Medication? Ordering Clinician Indication Dosage Frequency Signature (SIG) Comments Components Source dicyclomine 20 mg tablet 09-21 00:00: 00 Yes [id number] 20mg Take 1 tablet by mouth 4 times daily as needed for Abdominal pain. [facility] ondansetron 4 mg disintegrat ing tablet 09-21 00:00: 00 Yes [id number] 4mg Take 1 tablet by mouth every 8 hours as needed for Nausea and Vomiting (N/V). [facility] nirmatrelvi r-ritonavir (PAXLOVID) 300 mg (150 mg x 2)-100 mg tablet 11-22 00:00: 00 Yes [id number] 3{tbl} Take 3 tablets by mouth in the morning and 3 tablets in the evening. [facility] benzonatate 200 mg capsule 11-22 00:00: 00 12-03 04:59 :00 No [id number] 200mg Take 1 capsule by mouth 3 (three) times daily as needed for Cough for up to [address] [facility] ondansetron 4 mg tablet 11-22 00:00: 00 11-28 04:59 :00 No [id number] 4mg Take 1 tablet by mouth every 8 (eight) hours as needed for Nausea and Vomiting (N/V) for up to [address] [facility] dexamethaso ne sod phos PF injection 10 mg 07-27 01:30: 00 07-27 01:34 :00 No [id number] [facility] flutic[facility] propionate 50 mcg/actuati on nasal spray 07-26 00:00: 00 Yes [id number] 2{spray } Use 2 Sprays in each nostril in the morning. [facility] bromphenira mine-pseudo ephedrine-D M (BROMFED DM) 2-30-10 mg/5 mL syrup -08 00:00: 00 Yes [id number] 5mL Take 5 mL by mouth 3 (three) times daily as needed for Cold symptoms. [facility] cetirizine 10 mg tablet 07-26 00:00: 00 Yes [id number] 10mg Take 1 tablet by mouth in the morning. [facility] venlafaxine XR 75 mg 24 hr capsule 3- 00:00: [address] [facility] buPROPion XL 300 mg 24 hr tablet 3- 00:00: [address] [facility] benazepriL 20 mg tablet 3-20 00:00: [address] [facility] rosuvastati n 20 mg tablet 2- 00:00: [address] [facility] icosapent ethyL 1 gram capsule - 00:00: [address] [facility] ketorolac (TORADOL) injection 30 mg 2021-04 18:00: 00 04-05 17:09 :00 No [id number] [facility] ZITHROMAX Z-TARI 250 MG ORAL TAB 2007-04 00:00: [id number] [facility] clonazepam 0.5 mg tablet TAKE 1 TABLET BY MOUTH THREE TIMES A DAY NEEDED clonazepam 0.5 mg tablet TAKE 1 TABLET BY MOUTH THREE TIMES A DAY NEEDED No clonazepam 0.5 mg tablet TAKE 1 TABLET BY MOUTH THREE TIMES A DAY NEEDED [facility] anastrozole 1 mg tablet TAKE 1/2 TABLET ORALLY 48 HOURS POST WEEKLY INJECTION 90 DAYS anastrozole 1 mg tablet TAKE 1/2 TABLET ORALLY 48 HOURS POST WEEKLY INJECTION 90 DAYS No anastrozol e 1 mg tablet TAKE 1/2 TABLET ORALLY 48 HOURS POST WEEKLY INJECTION 90 DAYS [facility] ezetimibe 10 mg tablet TAKE 1 TABLET BY MOUTH EVERY DAY ezetimibe 10 mg tablet TAKE 1 TABLET BY MOUTH EVERY DAY No ezetimibe 10 mg tablet TAKE 1 TABLET BY MOUTH EVERY DAY [facility] metformin ER 500 mg tablet,exte nded release 24 hr Take 1 tablet every day by oral route in the morning for 90 days. metformin ER 500 mg tablet,exte nded release 24 hr Take 1 tablet every day by oral route in the morning for 90 days. No 1 Q1D metformin ER 500 mg tablet,ext ended release 24 hr Take 1 tablet every day by oral route in the morning for 90 days. [facility] montelukast 10 mg tablet Take 1 tablet every day by oral route for 90 days. montelukast 10 mg tablet Take 1 tablet every day by oral route for 90 days. No 1 Q1D montelukas t 10 mg tablet Take 1 tablet every day by oral route for 90 days. [facility] vilazodone 40 mg tablet TAKE 1 TABLET BY MOUTH EVERY DAY WITH FOOD vilazodone 40 mg tablet TAKE 1 TABLET BY MOUTH EVERY DAY WITH FOOD No vilazodone 40 mg tablet TAKE 1 TABLET BY MOUTH EVERY DAY WITH FOOD [facility] Accu-Chek Guide Glucose Meter USE DIRECTED. Accu-Chek Guide Glucose Meter USE DIRECTED. No Accu-Chek Guide Glucose Meter USE DIRECTED. [facility] Auvelity 45 mg-105 mg tablet, extended release Take 1 tablet twice a day by oral route as directed. Auvelity 45 mg-105 mg tablet, extended release Take 1 tablet twice a day by oral route as directed. No 1 BID Auvelity 45 mg-105 mg tablet, extended release Take 1 tablet twice a day by oral route as directed. [facility] doxepin 10 mg capsule TAKE 1 CAPSULE BY MOUTH EVERYDAY AT BEDTIME PRN doxepin 10 mg capsule TAKE 1 CAPSULE BY MOUTH EVERYDAY AT BEDTIME PRN No doxepin 10 mg capsule TAKE 1 CAPSULE BY MOUTH EVERYDAY AT BEDTIME PRN [facility] omeprazole 20 mg capsule,del ayed release TAKE 1 CAPSULE BY MOUTH EVERY MORNING omeprazole 20 mg capsule,del ayed release TAKE 1 CAPSULE BY MOUTH EVERY MORNING No omeprazole 20 mg capsule,de layed release TAKE 1 CAPSULE BY MOUTH EVERY MORNING [facility] Rexulti 2 mg tablet TAKE 1 TABLET BY MOUTH EVERY DAY Rexulti 2 mg tablet TAKE 1 TABLET BY MOUTH EVERY DAY No Rexulti 2 mg tablet TAKE 1 TABLET BY MOUTH EVERY DAY [facility] Farxiga 5 mg tablet Take 1 tablet every day by oral route for 90 days. Farxiga 5 mg tablet Take 1 tablet every day by oral route for 90 days. No 1 Q1D Farxiga 5 mg tablet Take 1 tablet every day by oral route for 90 days. [facility] fenofibrate micronized 134 mg capsule Take 1 capsule every day by oral route for 90 days. fenofibrate micronized 134 mg capsule Take 1 capsule every day by oral route for 90 days. No 1capsul e(s) Q1D fenofibrat e micronized 134 mg capsule Take 1 capsule every day by oral route for 90 days. [facility] Immunizations Ordered Immunization Name Filled Immunization Name Date Status Comments Source COVID-19 (SARS-COV-2) vaccine, unspecified COVID-19 (SARS-COV-2) vaccine, unspecified [facility] Vital Signs Vital Name Observation Time Observation Value Comments S ource Height 2024-12-27 00:00:00 69 [in_i] [facility] BP Systolic 2024-12-27 00:00:00 137 mm[Hg] [facility] BP Diastolic 2024-12-27 00:00:00 87 mm[Hg] [facility] BMI (Body Mass Index) 2024-12-27 00:00:00 39 kg/m2 [facility] Body Weight 2024-12-27 00:00:00 4227.2 [oz_av] [facility] BP Systolic 2024-12-13 00:00:00 131 mm[Hg] [facility] BP Diastolic 2024-12-13 00:00:00 89 mm[Hg] [facility] Height 2024-12-13 00:00:00 69 [in_i] [facility] BMI (Body Mass Index) 2024-12-13 00:00:00 38 kg/m2 [facility] Body Weight 2024-12-13 00:00:00 4112 [oz_av] [facility] Systolic blood pressure 2024-09-21 15:07:00 145 mm[Hg] [facility] Diastolic blood pressure 2024-09-21 15:07:00 96 mm[Hg] [facility] Heart rate 2024-09-21 15:07:00 82 /min [facility] Body temperature 2024-09-21 15:07:00 36.67 Joy [facility] Body height 2024-09-21 15:07:00 175.3 cm [facility] Body weight 2024-09-21 15:07:00 120.702 kg [facility] BMI 2024-09-21 15:07:00 39.30 kg/m2 [facility] Oxygen saturation in Arterial blood by Pulse oximetry 2024-09-21 15:07:00 95 /min [facility] Height 2024-07-29 00:00:00 69 [in_i] [facility] BMI (Body Mass Index) 2024-07-29 00:00:00 37.2 kg/m2 [facility] BP Systolic 2024-07-29 00:00:00 141 mm[Hg] [facility] Body Weight 2024-07-29 00:00:00 4032 [oz_av] [facility] BP Diastolic 2024-07-29 00:00:00 70 mm[Hg] [facility] BP Systolic 2024-07-14 00:00:00 127 mm[Hg] [facility] Body Weight 2024-07-14 00:00:00 4105.6 [oz_av] [facility] BP Diastolic 2024-07-14 00:00:00 76 mm[Hg] [facility] Height 2024-07-14 00:00:00 69 [in_i] [facility] BMI (Body Mass Index) 2024-07-14 00:00:00 37.9 kg/m2 [facility] Height 2024-06-22 00:00:00 69 [in_i] [facility] Body Weight 2024-06-22 00:00:00 4036.8 [oz_av] [facility] BP Systolic 2024-06-22 00:00:00 119 mm[Hg] [facility] BMI (Body Mass Index) 2024-06-22 00:00:00 37.3 kg/m2 [facility] BP Diastolic 2024-06-22 00:00:00 65 mm[Hg] [facility] BP Diastolic 2024-06-06 00:00:00 95 mm[Hg] [facility] Height 2024-06-06 00:00:00 69 [in_i] [facility] BP Systolic 2024-06-06 00:00:00 142 mm[Hg] [facility] BMI (Body Mass Index) 2024-06-06 00:00:00 38 kg/m2 [facility] Body Weight 2024-06-06 00:00:00 4115.2 [oz_av] [facility] Height 2024-05-18 00:00:00 69 [in_i] [facility] BP Systolic 2024-05-18 00:00:00 158 mm[Hg] [facility] BP Diastolic 2024-05-18 00:00:00 89 mm[Hg] [facility] BMI (Body Mass Index) 2024-05-16 00:00:00 37.8 kg/m2 [facility] Height 2024-05-16 00:00:00 69 [in_i] [facility] Body Weight 2024-05-16 00:00:00 4092.8 [oz_av] [facility] BP Diastolic 2024-05-16 00:00:00 83 mm[Hg] [facility] BP Systolic 2024-05-16 00:00:00 128 mm[Hg] [facility] BP Systolic 2024-05-12 00:00:00 125 mm[Hg] [facility] BMI (Body Mass Index) 2024-05-12 00:00:00 37.2 kg/m2 [facility] Height 2024-05-12 00:00:00 69 [in_i] [facility] Body Weight 2024-05-12 00:00:00 4035.2 [oz_av] [facility] BP Diastolic 2024-05-12 00:00:00 70 mm[Hg] [facility] BMI (Body Mass Index) 2024-05-06 00:00:00 37.7 kg/m2 [facility] BP Systolic 2024-05-06 00:00:00 132 mm[Hg] [facility] Height 2024-05-06 00:00:00 69 [in_i] [facility] Body Weight 2024-05-06 00:00:00 4080 [oz_av] [facility] BP Diastolic 2024-05-06 00:00:00 88 mm[Hg] [facility] Height 2024-05-04 00:00:00 69 [in_i] [facility] BP Diastolic 2024-05-04 00:00:00 85 mm[Hg] [facility] BP Systolic 2024-05-04 00:00:00 149 mm[Hg] [facility] BP Diastolic 2024-05-02 00:00:00 78 mm[Hg] [facility] BP Systolic 2024-05-02 00:00:00 133 mm[Hg] [facility] BMI (Body Mass Index) 2024-05-02 00:00:00 36.9 kg/m2 [facility] Body Weight 2024-05-02 00:00:00 3996.8 [oz_av] [facility] Height 2024-05-02 00:00:00 69 [in_i] [facility] Height 2024-03-23 00:00:00 69 [in_i] [facility] BP Diastolic 2024-03-23 00:00:00 94 mm[Hg] [facility] Body Weight 2024-03-23 00:00:00 4196.8 [oz_av] [facility] BMI (Body Mass Index) 2024-03-23 00:00:00 38.7 kg/m2 [facility] BP Systolic 2024-03-23 00:00:00 156 mm[Hg] [facility] Body Weight 2024-03-16 00:00:00 3987.2 [oz_av] [facility] Height 2024-03-16 00:00:00 69 [in_i] [facility] BP Systolic 2024-03-16 00:00:00 139 mm[Hg] [facility] BMI (Body Mass Index) 2024-03-16 00:00:00 36.8 kg/m2 [facility] BP Diastolic 2024-03-16 00:00:00 92 mm[Hg] [facility] BMI (Body Mass Index) 2024-03-10 00:00:00 37.4 kg/m2 [facility] Height 2024-03-10 00:00:00 69 [in_i] [facility] BP Systolic 2024-03-10 00:00:00 141 mm[Hg] [facility] Body Weight 2024-03-10 00:00:00 4054.4 [oz_av] [facility] BP Diastolic 2024-03-10 00:00:00 97 mm[Hg] [facility] Height 2024-02-09 00:00:00 69 [in_i] [facility] BMI (Body Mass Index) 2024-02-09 00:00:00 36.3 kg/m2 [facility] BP Systolic 2024-02-09 00:00:00 138 mm[Hg] [facility] Body Weight 2024-02-09 00:00:00 3929.6 [oz_av] [facility] BP Diastolic 2024-02-09 00:00:00 86 mm[Hg] [facility] Height 2024-01-08 00:00:00 69 [in_i] [facility] Height 2023-12-24 00:00:00 69 [in_i] [facility] BP Systolic 2023-12-24 00:00:00 140 mm[Hg] [facility] BP Diastolic 2023-12-24 00:00:00 92 mm[Hg] [facility] BMI (Body Mass Index) 2023-12-24 00:00:00 37.2 kg/m2 [facility] Body Weight 2023-12-24 00:00:00 4028.8 [oz_av] [facility] Systolic blood pressure 2023-11-24 01:44:00 131 mm[Hg] [facility] Diastolic blood pressure 2023-11-24 01:44:00 87 mm[Hg] [facility] Heart rate 2023-11-24 01:44:00 87 /min [facility] Body temperature 2023-11-24 01:44:00 36.89 Joy [facility] Respiratory rate 2023-11-24 01:44:00 16 /min [facility] Body weight 2023-11-24 01:44:00 108.183 kg [facility] BMI 2023-11-24 01:44:00 35.74 kg/m2 [facility] Oxygen saturation in Arterial blood by Pulse oximetry 2023-11-24 01:44:00 99 /min [facility] Body Weight 2023-09-29 00:00:00 4128 [oz_av] [facility] BP Diastolic 2023-09-29 00:00:00 94 mm[Hg] [facility] BMI (Body Mass Index) 2023-09-29 00:00:00 38.1 kg/m2 [facility] BP Systolic 2023-09-29 00:00:00 141 mm[Hg] [facility] Height 2023-09-29 00:00:00 69 [in_i] [facility] Body Weight 2023-06-16 00:00:00 4220.8 [oz_av] [facility] Height 2023-06-16 00:00:00 69 [in_i] [facility] BP Systolic 2023-06-16 00:00:00 119 mm[Hg] [facility] BP Diastolic 2023-06-16 00:00:00 65 mm[Hg] [facility] BMI (Body Mass Index) 2023-06-16 00:00:00 39 kg/m2 [facility] Height 2023-04-22 00:00:00 69 [in_i] [facility] BMI (Body Mass Index) 2023-04-22 00:00:00 38.5 kg/m2 [facility] Body Weight 2023-04-22 00:00:00 4172.8 [oz_av] [facility] BP Systolic 2023-04-22 00:00:00 147 mm[Hg] [facility] BP Diastolic 2023-04-22 00:00:00 72 mm[Hg] [facility] BP Systolic 2022-12-15 00:00:00 127 mm[Hg] [facility] BP Diastolic 2022-12-15 00:00:00 77 mm[Hg] [facility] Body Weight 2022-12-15 00:00:00 3766.4 [oz_av] [facility] Height 2022-12-15 00:00:00 69 [in_i] [facility] BMI (Body Mass Index) 2022-12-15 00:00:00 34.8 kg/m2 [facility] BP Systolic 2022-12-08 00:00:00 131 mm[Hg] [facility] Body Weight 2022-12-08 00:00:00 3696 [oz_av] [facility] Height 2022-12-08 00:00:00 69 [in_i] [facility] BMI (Body Mass Index) 2022-12-08 00:00:00 34.1 kg/m2 [facility] BP Diastolic 2022-12-08 00:00:00 80 mm[Hg] [facility] BP Systolic 2022-12-01 00:00:00 138 mm[Hg] [facility] BMI (Body Mass Index) 2022-12-01 00:00:00 36.4 kg/m2 [facility] Body Weight 2022-12-01 00:00:00 3942.4 [oz_av] [facility] BP Diastolic 2022-12-01 00:00:00 85 mm[Hg] [facility] Height 2022-12-01 00:00:00 69 [in_i] [facility] BP Diastolic 2022-10-24 00:00:00 77 mm[Hg] [facility] Height 2022-10-24 00:00:00 69 [in_i] [facility] BMI (Body Mass Index) 2022-10-24 00:00:00 35.6 kg/m2 [facility] BP Systolic 2022-10-24 00:00:00 137 mm[Hg] [facility] Body Weight 2022-10-24 00:00:00 3856 [oz_av] [facility] BP Diastolic 2022-09-23 00:00:00 82 mm[Hg] [facility] Height 2022-09-23 00:00:00 69 [in_i] [facility] BMI (Body Mass Index) 2022-09-23 00:00:00 37.2 kg/m2 [facility] BP Systolic 2022-09-23 00:00:00 142 mm[Hg] [facility] Body Weight 2022-09-23 00:00:00 4032 [oz_av] [facility] BP Diastolic 2022-08-12 00:00:00 66 mm[Hg] [facility] Height 2022-08-12 00:00:00 69 [in_i] [facility] BMI (Body Mass Index) 2022-08-12 00:00:00 37.2 kg/m2 [facility] BP Systolic 2022-08-12 00:00:00 121 mm[Hg] [facility] Body Weight 2022-08-12 00:00:00 4025.6 [oz_av] [facility] [facility] BP Diastolic 2022-08-08 00:00:00 74 mm[Hg] [facility] Height 2022-08-08 00:00:00 69 [in_i] [facility] BMI (Body Mass Index) 2022-08-08 00:00:00 37.2 kg/m2 [facility] BP Systolic 2022-08-08 00:00:00 128 mm[Hg] [facility] Body Weight 2022-08-08 00:00:00 4032 [oz_av] [facility] Systolic blood pressure 2022-07-27 01:09:00 133 mm[Hg] [facility] Diastolic blood pressure 2022-07-27 01:09:00 80 mm[Hg] [facility] Heart rate 2022-07-27 01:09:00 95 /min [facility] Body temperature 2022-07-27 01:09:00 36.11 Joy [facility] Respiratory rate 2022-07-27 01:09:00 15 /min [facility] Body height 2022-07-27 01:09:00 174 cm [facility] Body weight 2022-07-27 01:09:00 117.226 kg [facility] BMI 2022-07-27 01:09:00 38.72 kg/m2 [facility] Oxygen saturation in Arterial blood by Pulse oximetry 2022-07-27 01:09:00 97 /min [facility] BP Diastolic 2022-05-13 00:00:00 75 mm[Hg] [facility] Height 2022-05-13 00:00:00 69 [in_i] [facility] BMI (Body Mass Index) 2022-05-13 00:00:00 36.7 kg/m2 [facility] BP Systolic 2022-05-13 00:00:00 134 mm[Hg] [facility] Body Weight 2022-05-13 00:00:00 3977.6 [oz_av] [facility] BP Diastolic 2022-04-07 00:00:00 90 mm[Hg] [facility] Height 2022-04-07 00:00:00 69 [in_i] [facility] BMI (Body Mass Index) 2022-04-07 00:00:00 36.9 kg/m2 [facility] BP Systolic 2022-04-07 00:00:00 153 mm[Hg] [facility] Body Weight 2022-04-07 00:00:00 4000 [oz_av] [facility] Systolic blood pressure 2022-04-05 16:30:00 143 mm[Hg] [facility] Diastolic blood pressure 2022-04-05 16:30:00 82 mm[Hg] [facility] Heart rate 2022-04-05 16:29:00 98 /min [facility] Body temperature 2022-04-05 16:29:00 36.67 Joy [facility] Respiratory rate 2022-04-05 16:29:00 17 /min [facility] Body height 2022-04-05 16:29:00 175.3 cm [facility] Body weight 2022-04-05 16:29:00 113.082 kg [facility] BMI 2022-04-05 16:29:00 36.82 kg/m2 [facility] Oxygen saturation in Arterial blood by Pulse oximetry 2022-04-05 16:29:00 96 /min [facility] BP Diastolic 2022-01-03 00:00:00 82 mm[Hg] [facility] Height 2022-01-03 00:00:00 69 [in_i] [facility] BMI (Body Mass Index) 2022-01-03 00:00:00 35.8 kg/m2 [facility] BP Systolic 2022-01-03 00:00:00 118 mm[Hg] [facility] Body Weight 2022-01-03 00:00:00 3875.2 [oz_av] [facility] BP Diastolic 2021-03-26 00:00:00 73 mm[Hg] [facility] Height 2021-03-26 00:00:00 69 [in_i] [facility] BMI (Body Mass Index) 2021-03-26 00:00:00 34.4 kg/m2 [facility] BP Systolic 2021-03-26 00:00:00 141 mm[Hg] [facility] Body Weight 2021-03-26 00:00:00 3724.8 [oz_av] [facility] Procedures Procedure Date / Time Performed Performing Clinicia n Source US, kidney 2024-12-27 00:00:00 [facility] CT, chest, w/wo contrast 2024-05-16 00:00:[address] [facility] [address], chest, w/ contrast 2024-05-16 00:00:00 [facility] XR, chest, 2 view 2024-05-06 00:00:00 [facility] XR, ankle, 3 or more view 2024-03-10 00:00:00 [facility] POCT SARS-COV-2 ANTIGEN (BINAX NOW) 2023-11-23 00:00:00 Dandre La [facility] home sleep study 2022-09-23 00:00:00 [facility] XR, chest, 2 view 2022-08-12 00:00:00 [facility] POCT SARS-COV-2 ANTIGEN (BINAX NOW) 2022-07-26 00:00:00 Kamila Case [facility] EXTERNAL PROVIDER RECORDS 2022-04-08 06:01:00 Doctor Unassigned, [place] [facility] XR HAND 3+ VW LEFT 2022-04-05 16:47:00 Christa Xiong [facility] Inguinal Region Repair [facility] Esophageal Hiatus Hernia Repair [facility] Encounters Start Date/Time End Date/Time Encounter Type Admission Type Attending Clinicians Care Facility Care Department Encounter ID Source 2024-12-27 00:00:00 2024-12-27 00:00:00 Darling Morton APRN, MSN, [employer]GAN TE[employer]ER-BC: [address] [place] [address] , Ph. [facility] [id number] [facility] 2024-12-13 00:00:00 2024-12-13 00:00:00 Darling Morton APRN, MSN, [facility]-BC: [address] [place] [address] , Ph. [facility] 0826 [facility] 2024-09-21 10:00:00 2024-09-21 10:20:37 Urgent Care R Dandre La, Attending [facility] [id number] [facility] 2024-07-29 00:00:00 2024-07-29 00:00:00 Darling Mroton APRN, MSN, [facility]-BC: [address] [place] [address] , Ph. [facility] 0411 [facility] 2024-07-14 00:00:00 2024-07-14 00:00:00 Darling Morton APRN, MSN, [employer]BC: [address] [place] [address] , Ph. [facility] 0327 [facility] 2024-06-22 00:00:00 2024-06-22 00:00:00 Darling Morton APRN, MSN, [employer]-BC: [address] [place] [address] , Ph. [facility] 0305 [facility] 2024-06-06 00:00:00 2024-06-06 00:00:00 Darling Morton APRN, MSN, [facility]-: [address] [place] [address] , Ph. [facility] 2024-05-18 00:00:00 2024-05-18 00:00:00 Darling Morton APRN, MSN, [employer] TE[employer]-BC: 668 [facility], [address] [address] , Ph. [facility] 012 [facility] 2024-05-16 00:00:00 2024-05-16 00:00:00 Darling [place] APRN, MSN, [facility]: [address] [place] [address], [address] [address] , Ph. [facility] 012 [facility] 2024-05-12 00:00:00 2024-05-12 00:00:00 Darling Morton APRN, MSN, [facility]-BC: [address] [place] [address], [address] [address] , Ph. [facility] 0123 [facility] 2024-05-06 00:00:00 2024-05-06 00:00:00 Darling Morton APRN, MSN, [facility]: [address] [place] [address], [address] [address] , Ph. [facility] 0117 [facility] 2024-05-04 00:00:2024-05-04 00:00:00 Darling Morton APRN, MSN, [facility]: [address] [facility], [address], [place] [address] , Ph. [facility] [phone] 0115 [facility] 2024-05-02 00:00:00 2024-05-02 00:00:00 Darling Morton APRN, MSN, [facility]: [address] [facility], Suite [facility], [place] [address] , Ph. [facility] 0113 [facility] 2024-03-23 00:00:00 2024-03-23 00:00:00 Darling Morton APRN, MSN, [facility]: [address] [place] [address], [place] [address], [place] [address] , Ph. [facility] 1204 [facility] 2024-03-16 00:00:00 2024-03-16 00:00:00 Darling [place] APRN, MSN, [facility]: [address] [facility], Suite [facility], [place] [address] , Ph. [facility] 1127 [facility] 2024-03-10 00:00:00 2024-03-10 00:00:00 Darling [place] APRN, MSN, [facility]: [address] [place] [address], [address] [place] [address] , Ph. [facility] 1121 [facility] 2024-02-09 00:00:00 2024-02-09 00:00:00 Darling [place] APRN, MSN, [facility]: [address] [facility], Suite [facility], [place] [address] , Ph. [facility] [phone] 1022 [facility] 2024-01-08 00:00:00 2024-01-08 00:00:00 Darling [place] APRN, MSN, [employer]-BC: [address] [facility], [address] [place] [address] , Ph. [facility] 0920 [facility] 2023-12-24 00:00:00 2023-12-24 00:00:00 Darling [place] APRN, MSN, [facility]: [address] [facility], [address] [place] [address] , Ph. [facility] 0905 [facility] 2023-12-02 00:00:00 2023-12-02 10:53:00 Letter (Out) Campaigns, Generic Provider Campaigns, Generic Provider [facility] [id number] [facility] 2023-11-23 20:20:00 2023-11-23 21:07:47 Outpatient R DANDRE LA [facility] [id number] [facility] 2023-11-23 20:20:00 2023-11-23 21:07:47 Urgent Care Dandre La, Attending [facility] [id number] [id number] [facility] 2023-09-29 00:00:00 2023-09-29 00:00:00 Darling Morton APRN, MSN, [facility]: [address] [facility], Suite [facility], [place] [address] , Ph. [facility] 0611 [facility] 2023-07-11 00:00:00 2023-07-11 00:00:00 Outpatient L_Pena [facility] 0323 [facility] 2023-06-16 00:00:00 2023-06-16 00:00:00 Darling [place] APRN, MSN, [facility]: 8 [facility], [address] [place] [address] , Ph. [facility] [id number] [facility] 2023-04-22 00:00:00 2023-04-22 00:00:00 Darling [place] APRN, MSN, [facility]: [address] [place] [address], Suite [facility], [place] [address] , Ph. [facility] [id number] [facility] 2022-12-15 00:00:00 2022-12-15 00:00:00 Darling Morton APRN, MSN, [facility]: [address] [place] [address], [address] [place] [address] , Ph. [facility] [id number] [facility] 2022-12-08 00:00:00 2022-12-08 00:00:00 Darling [place] APRN, MSN, OR[employer] TEACHER-BC: [address] [place] [address], Suite [facility], [place] [address] , [facility] [id number] 2022-12-05 00:02:00 2022-12-07 16:25:00 Inpatient TYSHAWN REID [facility] CAR [id number] [facility] 2022-12-04 20:50:00 2022-12-04 23:59:00 Outpatient CANDY MORALES [facility] ERICH [id number] [facility] 2022-12-01 00:00:00 2022-12-01 00:00:00 Darling [place] APRN, MSN, [employer] TEACHER-BC: [address] [facility], [address], [place] [address] , Ph. [facility] [id number] [facility] 2022-10-24 00:00:00 2022-10-24 00:00:00 Cathi Mas, MSN, [employer], ORGAN TEACHER-C: [address] [place], [facility] [address], [place] [address] , Ph. [facility], Cathi Mas, MSN, ORGAN TEACHER-C [id number] [facility] 2022-09-23 00:00:00 2022-09-23 00:00:00 Darling [place] APRN, MSN, OR[employer] TEACHER-: [address] [place] [address], [address], [place] [address] , Ph. [facility] [id number] [facility] 2022-08-12 00:00:00 2022-08-12 00:00:00 Darling [place] APRN, MSN, ORGAN TEACHER-: [address] [place] [address], [address] [address] , Ph. [facility] [id number] [facility] 2022-08-08 00:00:00 2022-08-08 00:00:00 Daniela Campos APRN-ORGAN TEACHER-B C: [address] [facility], Suite [facility], [place] [address] , Ph. [facility] [id number] [facility] 2022-07-26 20:20:00 2022-07-26 20:20:00 Urgent [facility] 1..840.114 [id number] [id number] [facility] 2022-07-26 20:20:00 2022-07-26 20:18:11 Outpatient R MARGARETKEVIN [facility] [id number] [facility] 2022-05-13 00:00:00 2022-05-13 00:00:00 Darling [place] APRN, MSN, OR[employer] TEACHER-BC: [address] [place] [address], [address] [place] [address] , Ph. [facility] [id number] [facility] 2022-04-08 00:00:00 2022-04-08 00:00:00 Orders Only Doctor Unassigned, [place] [facility] 1..840.114 350.1.13.10 4.2.7.2.[id number] [facility] 2022-04-07 00:00:00 2022-04-07 00:00:00 Darling [place] APRN, MSN, ORGAN TEACHER-BC: [address] [place] [address], [address] [place] [address] , Ph. [facility] [id number] [facility] 2022-04-05 10:40:56 2022-04-05 23:59:00 Outpatient R CHRISTA XIONG [facility] [id number] [facility] 2022-04-05 10:40:56 2022-04-05 23:59:00 Hospital Encounter Christa Xiong [facility] [id number] [id number] [id number] [facility] 2022-04-05 10:20:00 2022-04-05 10:40:00 Urgent Care Christa Xiong Unknown, Attending [facility]?[employer] [id number] [id number] [id number] [facility] 2022-01-03 00:00:00 2022-01-03 00:00:00 Outpatient Darling oMrton [facility] [id number] 2022-01-03 00:00:00 2022-01-03 00:00:00 Darling [place] APRN, MSN, [facility]-: [address] [place] [address], [address] [address] , Ph. [facility] [id number] [facility] 2021-03-26 00:00:00 2021-03-26 00:00:00 Dorita Harrell APRN-REPAIRER WELDING EQUIPMENT-C: [address] [place] [address], [address] [place] [address] , Ph. [facility] [id number] [facility] 2021-03-26 00:00:00 2021-03-26 00:00:00 Outpatient Dorita Harrell [facility] [id number] 2021-03-05 00:00:00 2021-03-05 00:00:00 CARROLL Gates-: [address] [place] [address], [address], [place] [address] , Ph. [facility] [id number] [facility] Results Test Description Test Time Test Comments Results Result Co mments Source [facility], [id number] 11:05:36 * Test Item Value Reference Range Interpretation Comme nts Strep (test code = Strep) negative [facility] A and B and SARS-CoV+SARS-CoV-2 (COVID-19) Ag panel - Upper respiratory specimen byRapid [id number] 14:22:00* Test Item Value Reference Range Interpretation Comme nts COVID (test code = COVID) negative FLU A (test code = FLU A) positive FLU B (test code = FLU B) negative [facility] and B and SARS-CoV+SARS-CoV-2 (COVID-19) Ag panel - Upper respiratory specimen byRapid [id number] 11:23:00* Test Item Value Reference Range Interpretation Comme nts COVID (test code = COVID) negative FLU A (test code = FLU A) negative FLU B (test code = FLU B) negative [facility], [id number] 11:23:00 * Test Item Value Reference Range Interpretation Comme nts Strep (test code = Strep) negative [facility] (A+B)2024-02-09 09:34:00* Test Item Value Reference Range Interpretation Comme nts FLU A (test code = FLU A) negative FLU B (test code = FLU B) negative [facility] ([facility]-19) Ag [Presence] in Respiratory system specimen by Rapid [id number] 09:33:00* Test Item Value Reference Range Interpretation Comme nts SARS CoV 2 (test code = SARS CoV 2) negative [facility], [id number] 09:26:00 * Test Item Value Reference Range Interpretation Comme nts Strep (test code = Strep) negative [facility] SARS-[facility]OV-2 ANTIGEN (BINAX NOW)2023-11-24 01:45:00* Test Item Value Reference Range Interpretation Comme nts POCT SARS-COV-2 ANTIGEN (jaskaran t code = 39980-7) Positive Not Detected, See Comment A On board controls acceptable with C Line (test code = 3574) Yes Lab Interpretation (test cod e = 08223-7) Abnormal [facility] (A+B[facility]2023-04-22 08:39:35* Test Item Value Reference Range Interpretation Comme nts FLU A (test code = FLU A) negative FLU B (test code = FLU B) negative [facility], [id number] 08:39:28 * Test Item Value Reference Range Interpretation Comme nts Strep (test code = Strep) negative [facility] ([facility]OVID-19) Ag [Presence] in Respiratory system specimen by Rapid [id number] 08:39:21* Test Item Value Reference Range Interpretation Comme nts SARS CoV 2 (test code = SARS CoV 2) negative [facility] Center[facility] macro (dipstick) panel - Urine 2022-09-23 10:49:00* Test Item Value Reference Range Interpretation Comme nts Leukocytes (test code = Leukocytes) Negative Nitrite (test code = Nitrite) negative Urobilinogen (test code = Urobilinogen) .2 Protein (test code = Protein) Negative pH (test code = pH) 5.5 Blood (test code = Blood) Negative Specific Burns (test code = Specific Burns) 1.025 Ketone (test code = Ketone) Negative Bilirubin (test code = Bilirubin) Negative Glucose (test code = Glucose) Negative Appearance (test code = Appearance) Clear Color (test code = Color) Yellow [facility] [Mass/volume] in Capillary blood 2022-09-23 10:45:00* Test Item Value Reference Range Interpretation Comme nts Blood Glucose: mg/dl (test c ode = Blood Glucose: mg/dl) 135 [facility] ([facility]OVID-19) Ag [Presence] in Respiratory specimen by Rapid [id number] 09:11:00* Test Item Value Reference Range Interpretation Comme nts SARS CoV 2 (test code = SARS CoV 2) negative [facility], [id number] 08:53:00 * Test Item Value Reference Range Interpretation Comme nts Strep (test code = Strep) negative [facility] SARS-COV-2 ANTIGEN (BINAX NOW)2022-07-27 01:36:00* Test Item Value Reference Range Interpretation Comme nts POCT SARS-COV-2 ANTIGEN (jaskaran t code = 02149-5) Not Detected Not Detected On board controls acceptable with C Line (test code = 3574) Yes [facility]
[2025-01-27] MEDS ORDERED: ASPIRIN 81 MG CHEWABLE TABLET ONE (12:23)
[2025-01-27 12:25] LABS: Absolute Lymphocytes (CBC) 0.9 K/uL (0.7-4.9); Hematocrit 44.4 % (39.6-49.0); Hemoglobin 14.1 g/dL (13.6-17.9); MCH 23.7 pg (27.0-35.0); MCHC 31.9 g/dL (32.0-36.0); MCV 74.4 fL (80-100); MPV 8.4 fL (7.6-11.3); Nucleated RBC Absolute Count 0.0 (0-0); Nucleated Red Blood Cells % 0.1 % (0-0); RBC Red Blood Cell Count 5.97 M/uL (4.33-5.43); White Blood Count 4.70 thou/uL (4.3-10.9)
[2025-01-27 12:44] LABS: ALT/SGPT 82 U/L (16-61); Albumin 3.7 g/dL (3.4-5.0); Albumin/Globulin Ratio 1.0 (1.1-1.8); Alkaline Phosphatase 70 U/L (45-117); Anion Gap 12.9 mEq/L (5.0-15.0); BUN Blood Urea Nitrogen 16 mg/dL (7-18); Globulin 3.7 g/dL (2.3-3.5); Glucose Level 113 mg/dL (74-106); NT PRO-BNP 6 pg/mL (<125); Troponin High Sensitivity 7.7 pg/mL (<58.9)
[2025-01-27 12:46] LABS: AST/SGOT 40 U/L (15-37); Bilirubin Indirect, Calculated 0.4 mg/dL (0.2-0.8); Potassium 3.9 mEq/L (3.5-5.1)
--- NOTE | 2025-01-27 13:14 | RAD REPORT ---
EXAM: Chest Single View HISTORY: 44 years Male CHEST PAIN COMPARISON: 10/15/2024 FINDINGS: LUNGS/PLEURA: The lungs are clear. No pleural effusions or pneumothorax. No pulmonary edema. Linear s carring in the lung bases. CARDIAC/MEDIASTINUM: The cardiac silhouette is within normal limits. UPPER ABDOMEN: No significant abnormality. BONES: No acute abnormality. LINES/TUBES/OTHER: N/A IMPRESSION: No evidence of acute cardiopulmonary disease.
[2025-01-27 13:57] LABS: Anisocytosis 2+; Blood Morphology Comment NOTED (NOT SEEN); Macrocytosis 1+; Poikilocytosis 1+; White Blood Cell Scan OK (OK)
[2025-01-27 13:58] LABS: Teardrop Cell 1+
--- NOTE | 2025-01-27 14:51 | EDPHYS ---
Physician Documentation [facility] Name: Lorne Cornejo Age: 44 yrs Sex: Male : 1980 Arrival Date: 01/27/2025 Time: 11:43 Bed 14 Private MD: Aubrey Lindsay HPI: 01/27 11:56 This 44 yrs old Male presents to ER via Ambulatory with complaints of Abnormal Lab jh7 Results. 11:56 44-year-old male with a past medical history of hypertension, HLD, diabetes, and jh7 anxiety presents to the ER for an abnormal EKG. The patient reports that he went to see his PCP regarding erectile dysfunction and that she requested performing an EKG before putting the patient on any medication. She informed the patient that his EKG was abnormal and that he should go get checked at any ER. He stated that after she told him this he started to develop mild chest pain at 2 out of 10. No other symptoms/complaints.. Historical: - Allergies: 11:56 No Known Allergies; af3 - PMHx: 11:56 Anxiety; depressive disorder; diabetes mellitus; Hypercholesterolemia; Hypertensive af3 disorder; - PSHx: 11:56 hiatal hernia; hernia; af3 - Immunization history:: Adult Immunizations unknown. - Infectious Disease History:: Denies. - Social history:: Smoking status: Patient denies any tobacco usage or history of. Patient uses alcohol, occasionally. ROS: 11:56 Constitutional: Per HPI jh7 Exam: 11:56 Constitutional: This is a well developed, well nourished patient who is awake, alert, jh7 and in no acute distress. Head/Face: Normocephalic, atraumatic. Neck: Trachea midline, no thyromegaly or masses palpated, and no cervical lymphadenopathy. Supple, full range of motion without nuchal rigidity, or vertebral point tenderness. No Meningismus. Cardiovascular: Regular rate and rhythm with a normal S1 and S2. No gallops, murmurs, or rubs. Normal PMI, no JVD. No pulse deficits. Respiratory: Lungs have equal breath sounds bilaterally, clear to auscultation and percussion. No rales, rhonchi or wheezes noted. No increased work of breathing, no retractions or nasal flaring. Abdomen/GI: Soft, non-tender, with normal bowel sounds. No distension or tympany. No guarding or rebound. No evidence of tenderness throughout. Skin: Warm, dry with normal turgor. Normal color with no rashes, no lesions, and no evidence of cellulitis. MS/ Extremity: Pulses equal, no cyanosis. Neurovascular intact. Full, normal range of motion. Neuro: Awake and alert, GCS 15, oriented to person, place, time, and situation. Motor strength 5/5 in all extremities. Sensory grossly intact. Normal gait. Vital Signs: 11:54 BP 153 / 90; Pulse 98; Resp 18; Temp 97.9; Pulse Ox 100% on R/A; Weight 118.84 kg; af3 Height 5 ft. 9 in. ; Pain 0/10; 12:48 BP 130 / 76; Pulse 90; Resp 18; Pulse Ox 92% on R/A; af3 14:17 BP 126 / 79; Pulse 86; Resp 18; Pulse Ox 96% on R/A; af3 14:56 BP 119 / 73; Pulse 84; Resp 18; Pulse Ox 96% on R/A; af3 11:54 Body Mass Index 38.69 (118.84 kg, 175.26 cm) af3 11:54 Pain Scale: Adult af3 MDM: 11:51 Medical Screening Exam initiated [facility] 14:53 Differential diagnosis: pneumonia AMI, NSTEMI, Anxiety. Data reviewed: vital signs, [facility] nurses notes, lab test result(s), EKG, radiologic studies, plain films. Independent interpretation of the following test(s) in the Emergency Department EKG: See my EKG interpretation above X-Ray: My interpretation is no acute abnomalities. Care significantly affected by the following chronic conditions: Diabetes, Hypertension. Counseling: I had a detailed discussion with the patient and/or guardian regarding the historical points, exam findings, and any diagnostic results supporting the discharge/admit diagnosis, lab results, radiology results, to return to the emergency department if symptoms worsen or persist or if there are any questions or concerns that arise at home. 01/27 12:02 Order name: Basic Metabolic Panel; Complete Time: 12:[address] [facility] 01/27 12:02 Order name: CBC with Diff; Complete Time: 14:[address] [facility] 01/27 12:02 Order name: LFT's; Complete Time: 12:[address] [facility] 01/27 12:02 Order name: NT PRO-BNP; Complete Time: 12:[address] [facility] 01/27 12:02 Order name: Troponin HS; Complete Time: 12:[address] [facility] 01/27 12:35 Order name: CBC Smear Scan; Complete Time: 14:49 [facility] 01/27 12:48 Order name: Troponin High Sensitivity: repeat trop \T\[id number]; Complete Time: 14:[address] [facility] 01/27 12:02 Order name: XRAY Chest (1 view); Complete Time: 13:[address] [facility] 01/27 12:02 Order name: EKG; Complete Time: 12:[address] [facility] 01/27 12:02 Order name: Cardiac monitoring; Complete Time: 12:[address] [facility] 01/27 12:02 Order name: EKG - Nurse/Tech; Complete Time: 12:[address] [facility] 01/27 12:02 Order name: IV Saline Lock; Complete Time: 12:[address] [facility] 01/27 12:02 Order name: Labs collected and sent; Complete Time: 12:[address] [facility] 01/27 12:02 Order name: O2 Per Protocol; Complete Time: 12:[address] [facility] 01/27 12:02 Order name: O2 Sat Monitoring; Complete Time: 12:[address] [facility] EC:11 Rate is 92 beats/min. Rhythm is regular. QRS [place] is Normal. [place] interval is normal. QRS jh7 interval is normal. QT interval is normal. No Q waves. T waves are Inverted in leads II, III, aVF, V5. No ST changes noted. Clinical impression: Sinus rhythm. Administered Medications: 12:42 Drug: Aspirin PO Chewable Tablet 324 mg PO once; 81 mg tablets x 4 Route: PO; af3 13:57 Follow up: Response: No adverse reaction af3 Disposition Summary: 01/27/25 14:50 Discharge Ordered Notes: Location: Home [facility] Problem: new [facility] Symptoms: have improved [facility] Condition: Stable [facility] Diagnosis - Abnormal electrocardiogram [ECG] [EKG] [facility] Followup: [facility] - With: Private Physician - When: 2 - 3 days - Reason: Recheck today's complaints Discharge Instructions: - Discharge Summary Sheet [facility] - Electrocardiogram [facility] Forms: - Medication Reconciliation Form [facility] - Patient Portal Instructions [facility] - Leadership Thank You Letter [facility] Addendum: 02/01/2025 06:57 Co-signature as Attending Physician, Aubrey Jaems MD I agree with the assessment and c burdick plan of care. Signatures: Dispatcher [employer] Aubrey Lucia MD MD cha Hadash, Jennifer, HOSE FINISHER HOSE FINISHER jh7 Yasemin Weaver, RN RN af3
--- NOTE | 2025-01-27 14:51 | ER ---
Nurse's Notes [facility] Name: Lorne Cornejo Age: 44 yrs Sex: Male : 1980 Arrival Date: 01/27/2025 Time: 11:43 Bed 14 Private MD: Diagnosis: Abnormal electrocardiogram [ECG] [EKG] Presentation: 01/27 11:54 Chief complaint: Patient states: Sent from PCPs office for abnormal EKG, denies pain, af3 c/o SOB, dizziness and headache. Coronavirus screen: At this time, the client does not indicate any symptoms associated with coronavirus-19. Ebola Screen: No symptoms or risks identified at this time. Initial Sepsis Screen: Does the patient meet any 2 criteria? No. Patient's initial sepsis screen is negative. Does the patient have a suspected source of infection? No. Patient's initial sepsis screen is negative. Risk Assessment: Do you want to hurt yourself or someone else? Patient reports no desire to harm self or others. Onset of symptoms was January 27, 2025. 11:54 Method Of Arrival: Ambulatory af3 11:54 Acuity: KATHIA 3 af3 Historical: - Allergies: 11:56 No Known Allergies; af3 - PMHx: 11:56 Anxiety; depressive disorder; diabetes mellitus; Hypercholesterolemia; Hypertensive af3 disorder; - PSHx: 11:56 hiatal hernia; hernia; af3 - Immunization history:: Adult Immunizations unknown. - Infectious Disease History:: Denies. - Social history:: Smoking status: Patient denies any tobacco usage or history of. Patient uses alcohol, occasionally. Screenin:20 [facility] ED Fall Risk Assessment (Adult) History of falling in the last 3 months, af3 including since admission No falls in past 3 months (0 pts) Confusion or Disorientation No (0 pts) Intoxicated or Sedated No (0 pts) Impaired Gait No (0 pts) Mobility Assist Device Used No (0 pt) Altered Elimination No (0 pt) Score/Fall Risk Level 0 - 2 = Low Risk Oriented to surroundings, Maintained a safe environment, Educated pt \T\ family on fall prevention, incl call for assistance when getting out of bed. Abuse screen: Denies threats or abuse. Denies injuries from another. Nutritional screening: No deficits noted. Tuberculosis screening: No symptoms or risk factors identified. Assessment: 12:20 General: Appears in no apparent distress. comfortable, well groomed, well developed, af3 Behavior is calm, cooperative, appropriate for age. Pain: Denies pain. Neuro: Level of Consciousness is awake, alert, obeys commands, Oriented to person, place, time, situation, Appropriate for age. Cardiovascular: Patient's skin is warm and dry. Respiratory: Airway is patent Respiratory effort is even, unlabored, Respiratory pattern is regular, symmetrical. 13:20 Reassessment: Patient appears in no apparent distress at this time. No changes from af3 previously documented assessment. Patient and/or family updated on plan of care and expected duration. Pain level reassessed. 14:56 Reassessment: Patient appears in no apparent distress at this time. No changes from af3 previously documented assessment. Patient and/or family updated on plan of care and expected duration. Pain level reassessed. Vital Signs: 11:54 BP 153 / 90; Pulse 98; Resp 18; Temp 97.9; Pulse Ox 100% on R/A; Weight 118.84 kg; af3 Height 5 ft. 9 in. ; Pain 0/10; 12:48 BP 130 / 76; Pulse 90; Resp 18; Pulse Ox 92% on R/A; af3 14:17 BP 126 / 79; Pulse 86; Resp 18; Pulse Ox 96% on R/A; af3 14:56 BP 119 / 73; Pulse 84; Resp 18; Pulse Ox 96% on R/A; af3 11:54 Body Mass Index 38.69 (118.84 kg, 175.26 cm) af3 11:54 Pain Scale: Adult af3 ED Course: 11:46 Patient arrived in ED. al6 11:50 Yasemin Weaver, LAILA is Primary Nurse. af3 11:50 Glenna Kline FNP is PHCP. jh7 11:51 Aubrey James MD is Attending Physician. jh7 11:56 Triage completed. af3 11:56 Arm band placed on Patient placed in an exam room, on a stretcher, on pulse oximetry. af3 12:20 Patient has correct armband on for positive identification. Bed in low position. Call af3 light in reach. Provided Education on: call light use . 12:20 No provider procedures requiring assistance completed. af3 12:23 EKG done, by special procedures tech. reviewed by Glenna CRAWLEY. ts3 12:23 Initial lab(s) drawn, by photofinishing laboratory worker, sent to lab. Inserted saline lock: 20 gauge in right ts3 antecubital area, using aseptic technique. Blood collected. Flushed with 10 mL NS. 13:01 XRAY Chest (1 view) In Process Unspecified. EDMS 14:57 IV discontinued, intact, bleeding controlled, No redness/swelling at site. Pressure af3 dressing applied. Administered Medications: 12:42 Drug: Aspirin PO Chewable Tablet 324 mg PO once; 81 mg tablets x 4 Route: PO; af3 13:57 Follow up: Response: No adverse reaction af3 Medication: 12:20 VIS not applicable for this client. af3 Outcome: 14:50 Discharge ordered by . jh7 14:57 Discharged to home ambulatory, af3 14:57 Condition: stable 14:57 Discharge instructions given to patient, Instructed on discharge instructions, follow up and referral plans. Demonstrated understanding of instructions, follow-up care, 14:57 Patient left the ED. af3 Signatures: Dispatcher [employer] EDMS Glenna Kline, STEAM TABLE ASSOCIATE STEAM TABLE ASSOCIATE 7 Yasemin Weaver, LAILA RN af3 Poly Recinos Taisha ts3
[2025-01-27 15:02] VITALS: TEMP 97.9
[2025-01-27 15:05] VITALS: O2SAT 96
[2025-01-27 15:07] VITALS: BP 119/73
== END 2025-01-27 14:57 | disposition home or self-care (01) ==
LOC: ER 11:43
DX: R94.31 Abnormal electrocardiogram [ECG] [EKG] (principal); R07.9 Chest pain, unspecified; I10 Essential (primary) hypertension
CPT/HCPCS: 36415; 71045; 80048; 80076; 83880; 84484; 85025; 93005; 99284